=== PATIENT | male | born 1970 | race African-American/Black ===

== ENCOUNTER 2023-04-12 09:07 | Emergency (ER) | payer SELFPAY ==
[2023-04-12 09:15] VITALS: BP 160/90; PULSE 54; RESP 16; TEMP 36.9; O2SAT 98; BMI 19.5
--- NOTE | 2023-04-12 09:31 | US_ITS ---
The [address] [address] Patient Name: PATRICIA CARNEY MRN: [id number] date: 1970 Sex: M Assigned Patient Location: ER Current Patient Location: ER Accession/Order Number: [id number] Exam Date: 04/12/2023 10:00 Report Date: 04/12/2023 11:35 At the request of: JOHN DHILLON Procedure: US right upper quadrant EXAMINATION: US right upper quadrant HISTORY: RUQ pain, vomiting COMPARISON: No relevant comparison available. TECHNIQUE: Transabdominal evaluation of the right upper quadrant. FINDINGS: LIVER: Normal size and echotexture. Color Doppler demonstrates patent hepatic veins. PORTAL VEIN: Duplex Doppler demonstrates normal hepatopetal flow pattern with flow velocity averaging 29 cm/s. GALLBLADDER: Partially filled with sludge; and contains a 5 mm stone. 6 mm stone within the cystic duct. No abnormal wall thickening. Negative sonographic Garza's sign. BILIARY: Abnormally dilated common bile duct, 9 mm. PANCREASE: No visible mass, abnormal atrophy, or duct dilation. KIDNEY: No hydronephrosis. No visible mass or stones. Size: 10.0 x 4.6 x 5.7 cm OTHER: Hyperechoic 1.3 cm area within proximal splenic vein versus portal vein which may represent thrombus. US/US right upper quadrant IMPRESSION: 1. Suspect thrombus within the portal vein/proximal splenic vein. Consider CT abdomen with IV contrast imaged during normal portal venous phase. 2. Abnormally dilated common bile duct with stones seen within the gallbladder and cystic duct. No gallbladder wall thickening, free fluid, or patient described tenderness while imaging directly over the gallbladder. Electronically authenticated by: VLADIMIR ARMENDARIZ Date: 04/12/2023 11:35
--- NOTE | 2023-04-12 09:33 | ED.ABDPAIN1 ---
HPI - Abdominal Pain General Chief Complaint: Abdominal Pain Stated Complaint: ABDOMINAL PAIN, FEVER, NAUSEA Time Seen by Provider: 04/12/23 09:14 Source: patient Mode of arrival: walk-in Limitations: no limitations History of Present Illness HPI narrative: patient presents with RUQ abdominal pain that began about a month ago and has been waxing and waning since. He sometimes has fever or chills. He admits to nausea and vomiting as well. Pain sometimes radiates into the right flank. He believes it is his gallbladder. He has never had kidney stones but told me that his urine is sometimes dark. He saw his PCP and is scheduled to get abdominal x-rays and blood testing on but the pain suddenly increased this morning so he came to the ED for evaluation. Last meal was yesterday. He drank half of a cup of coffee this morning. Related Data Home Medications Medication Instructions Recorded Confirmed atenolol 50 mg tablet 50 mg PO DAILY 04/12/23 04/12/23 ibuprofen 600 mg tablet 600 mg PO Q6H PRN pain 04/12/23 04/12/23 lisinopril 20 mg tablet 20 mg PO DAILY 04/12/23 04/12/23 Allergies Allergy/AdvReac Type Severity Reaction Status Date / Time No Known Drug Allergies Allergy Verified 04/12/23 09:21 [facility] Social History Smoking status: Current every day smoker Exam Narrative Exam Narrative: Nurses notes and vital signs reviewed and patient is not hypoxic. afebrile General: Well-appearing and in no apparent distress. Skin: Warm, dry, no pallor noted. Head: Normocephalic, atraumatic. Eye: Pupils are equal, round and EOMI. No scleral icterus. Ears, Nose, Mouth, and Throat: Oral mucosa is moist Cardiovascular: Regular Rate and Rhythm without murmur, gallop or rub. Respiratory: No accessory muscle use or respiratory distress. Lungs are clear to auscultation, no wheezing, rales or rhonchi Back: No CVA tenderness Musculoskeletal: normal ROM GI: Abdomen is soft, non-distended. Normal bowel sounds. No masses appreciated. RUQ and epigastric tenderness to palpation. No rebound, guarding, or rigidity noted. Neurological: A&O x4. No cranial nerve dysfunction observed. No truncal ataxia. Moves all extremities. Sensation intact. Psychiatric: Cooperative and interactive. Normal mood and affect. Constitutional Vital Signs, click to edit/add: Last Vital Signs Temp 98.4 F 04/12/23 09:15 Pulse 54 L 04/12/23 09:15 Resp 16 04/12/23 09:15 BP 160/90 H 04/12/23 09:15 Pulse Ox 98 04/12/23 09:15 O2 Del Method Room Air 04/12/23 09:15 Course Vital Signs Vital signs: Vital Signs Temperature 98.4 F 04/12/23 09:15 Pulse Rate 54 L 04/12/23 09:15 Respiratory Rate 16 04/12/23 09:15 Blood Pressure 160/90 H 04/12/23 09:15 Pulse Oximetry 98 04/12/23 09:15 Oxygen Delivery Method Room Air 04/12/23 09:15 Temperature 98.4 F 04/12/23 09:15 Pulse Rate 54 L 04/12/23 09:15 Respiratory Rate 16 04/12/23 09:15 Blood Pressure 160/90 H 04/12/23 09:15 Pulse Oximetry 98 04/12/23 09:15 Oxygen Delivery Method Room Air 04/12/23 09:15 MDM - Abdominal Pain MDM Narrative Medical decision making narrative: the patient says that he last ate yesterday. He said he had half a cup of coffee this morning. Blood was drawn and sent for testing. Peripheral IV was established. The patient was ordered to undergo ultrasound of the right upper quadrant. The patient was given IV Toradol and IV Zofran as well as sublingual Levsin for her symptoms. normal CBC including normal white blood cell count. CMP notable for minimal decrease in sodium, normal renal function, elevated AST, ALT and alkaline phosphatase. Patient's total bilirubin is elevated at 7.1. The patient's direct bilirubin is elevated at 6.2. Normal lipase Ultrasound reveals abnormally dilated common bile duct with stones seen within the gallbladder and cystic duct. No gallbladder wall thickening, free fluid or patient described tenderness well imaging directly over the gallbladder. Suspected thrombus within the portal vein and proximal splenic vein was noted. CT scanning -with IV contrast -of the abdomen was recommended and therefore obtained. The patient does not have splenic or portal vein thrombus - he has 2cm pancreatic head mass. Call placed to the general surgeon event operations manager to discuss. Dr Miller and I discussed the case and he said the patient needs ERCP and transfer to another facility. Call placed to GI event operations manager at [facility]. @[phone] the patient notified us that he wanted to leave AMA - he refused to go to [facility]. 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 I discussed the risks of leaving AMA including worsening condition, risk of and he expressed verbal understanding and signed the written AMA form. He promised to go to either [facility] ED or one of the [facility] EDs to have his condition addressed - we do not have ERCP capability so he would not come back to us for that. Patient given a copy of the rad reports for his US and CT and a CD with his images on it. Lab Data Attestation: I reviewed the patient's lab results. Labs: Lab Results 04/12/23 Range/Units 09:27 WBC 6.5 (4.0-11.0) 10^3/uL RBC 3.92 L (4.70-6.10) 10^6/uL Hgb 12.3 L (14.0-18.0) g/dL Hct 36.1 L (42.0-54.0) % MCV 92.1 (80.0-94.0) fL MCH 31.4 (25.9-34.0) pg MCHC 34.1 (29.9-35.2) g/dL RDW 13.7 (11.0-15.0) % Plt Count 300 (150-450) 10^3/uL MPV 10.4 (9.5-13.5) fL Neut % (Auto) 62.4 (43.0-75.0) % Lymph % (Auto) 26.7 (20.5-60.0) % Alfalfa % (Auto) 9.6 (1.7-12.0) % Eos % (Auto) 0.5 L (0.9-7.0) % Baso % (Auto) 0.6 (0.2-2.0) % Neut # (Auto) 4.1 (1.4-6.5) 10^3/uL Lymph # (Auto) 1.7 (1.2-3.8) 10^3/uL Alfalfa # (Auto) 0.6 (0.3-0.8) 10^3/uL Eos # (Auto) 0.0 (0.0-0.7) 10^3/uL Baso # (Auto) 0.0 (0.0-0.1) 10^3/uL Abs Immat Gran (auto) 0.01 (0.00-0.03) 10^3/uL Imm/Tot Granulo (auto) 0.2 (0.0-0.5) % Sodium 133 L (136-145) mmol/L Potassium 3.7 (3.5-5.1) mmol/L Chloride 98 (98-107) mmol/L Carbon Dioxide 27.6 (21.0-32.0) mmol/L Anion Gap 11.1 BUN 17.0 (7.0-18.0) mg/dL Creatinine 1.20 (0.70-1.30) mg/dL Est GFR ( Amer) >60 (>=60) Est GFR (Non-Af Amer) >60 (>=60) BUN/Creatinine Ratio 14.2 Glucose 160 H (74-106) mg/dL Calcium 8.3 L (8.5-10.1) mg/dL Total Bilirubin 7.1 H (0.2-1.0) mg/dL Direct Bilirubin 6.2 H* (0.0-0.2) mg/dL AST 98 H (15-37) U/L ALT 158 H (16-63) U/L Alkaline Phosphatase 482 H (46-116) U/L Total Protein 6.2 L (6.4-8.2) g/dL Albumin 2.7 L (3.4-5.0) g/dL Globulin 3.5 g/dL Albumin/Globulin Ratio 0.8 Lipase 12.0 L (16.0-77.0) U/L Imaging Data US GB: Radiologist's impression: Patient Name: PATRICIA CARNEY MRN: [id number] date: 1970 Sex: M Assigned Patient Location: ER Current Patient Location: ER Accession/Order Number: [id number] Exam Date: 04/12/2023 10:00 Report Date: 04/12/2023 11:35 At the request of: JOHN DHILLON Procedure: US right upper quadrant EXAMINATION: US right upper quadrant HISTORY: RUQ pain, vomiting COMPARISON: No relevant comparison available. TECHNIQUE: Transabdominal evaluation of the right upper quadrant. FINDINGS: LIVER: Normal size and echotexture. Color Doppler demonstrates patent hepatic veins. PORTAL VEIN: Duplex Doppler demonstrates normal hepatopetal flow pattern with flow velocity averaging 29 cm/s. GALLBLADDER: Partially filled with sludge; and contains a 5 mm stone. 6 mm stone within the cystic duct. No abnormal wall thickening. Negative sonographic Garza's sign. BILIARY: Abnormally dilated common bile duct, 9 mm. PANCREASE: No visible mass, abnormal atrophy, or duct dilation. KIDNEY: No hydronephrosis. No visible mass or stones. Size: 10.0 x 4.6 x 5.7 cm OTHER: Hyperechoic 1.3 cm area within proximal splenic vein versus portal vein which may represent thrombus. IMPRESSION: 1. Suspect thrombus within the portal vein/proximal splenic vein. Consider CT abdomen with IV contrast imaged during normal portal venous phase. 2. Abnormally dilated common bile duct with stones seen within the gallbladder and cystic duct. No gallbladder wall thickening, free fluid, or patient described tenderness while imaging directly over the gallbladder. Electronically authenticated by: VLADIMIR ARMENDARIZ Date: 04/12/2023 11:35 CT scan - abdomen: Radiologist's impression: Patient Name: PATRICIA CARNEY MRN: [id number] date: 1970 Sex: M Assigned Patient Location: Current Patient Location: Accession/Order Number: [id number] Exam Date: 04/12/2023 11:58 Report Date: 04/12/2023 12:42 At the request of: JOHN DHILLON Procedure: CT abdomen w con EXAMINATION: CT abdomen w con HISTORY: thrombus portal vein/splenic vein COMPARISON: Ultrasound right upper quadrant 04/12/2023 TECHNIQUE: Axial, Coronal, and Sagittal images were obtained without and/or with IV contrast as indicated by examination type. Dose reduction techniques were achieved by using automated exposure control and/or adjustment of mA and/or kV according to patient size and/or use of iterative reconstruction technique FINDINGS: LUNG BASES: No visible pulmonary or pleural disease. LIVER: No enlargement, atrophy, abnormal density, or significant focal lesion. BILIARY: Well distended gallbladder without wall thickening. Abnormally dilated cystic duct and common bile duct without visible stones (the stones seen on today's ultrasound represent noncalcified stones). PANCREAS: Abnormally dilated pancreatic duct involving the body and tail. 2.0 cm rounded slightly lobular heterogeneous hypoechoic mass within head of pancreas. SPLEEN: No enlargement or focal lesion. ADRENALS: No mass or enlargement. KIDNEYS: No mass, obstruction, or calcification. BOWEL/MESENTERY: Partially distended stomach with circumferential wall thickening up to 12 mm; no appreciable ulceration or mass. Unremarkable visible bowel. AORTA/VASCULAR: No aneurysm or dissection of the aorta. No thrombus within the splenic vein or portal vein. RETROPERITONEUM: No mass or adenopathy. ABDOMINAL WALL: No mass or hernia. BONES: No bony lesion or fracture. OTHER: Negative. IMPRESSION: 1. Within the head of pancreas is a 2 cm mass suspicious for neoplasm obstructing the pancreatic duct and common bile duct. 2. Atypical wall thickening of the stomach; gastritis? 3. No appreciable lymphadenopathy or suspicious liver lesions. 4. No thrombus within the splenic vein or portal vein (ultrasound findings likely represented the mass within the pancreas adjacent the pancreatic duct). Electronically authenticated by: VLADIMIR ARMENDARIZ Date: 04/12/2023 12:42 Discharge Plan Discharge Chief Complaint: Abdominal Pain Clinical Impression: Calculus of common bile duct with obstruction, Mass of head of pancreas Patient Disposition: Left Against Medical Advice Time of Disposition Decision: 12:55 Prescriptions / Home Meds: No Action atenolol 50 mg tablet 50 mg PO DAILY lisinopril 20 mg tablet 20 mg PO DAILY ibuprofen 600 mg tablet 600 mg PO Q6H PRN (Reason: pain) Stand Alone Forms: Portal Instructions Referrals: MARY ARVIZU [Primary Care Provider] - 1 week Discharge Date/Time: 04/12/23 13:53
[2023-04-12] MEDS: ONDANSETRON PF 4 MG/2 ML VIAL IV (09:38)
[2023-04-12] MEDS: KETOROLAC TROMETHAMINE 30 MG/ML VIAL IVP (09:38)
[2023-04-12] MEDS: HYOSCYAMINE SULFATE 0.125 MG TAB.SUBL SL (09:38)
[2023-04-12 09:49] LABS: Basophils Percent Auto 0.6 % (0.2-2.0); Eosinophils Percent Auto 0.5 % (0.9-7.0); Hematocrit 36.1 % (42.0-54.0); Hemoglobin 12.3 g/dL (14.0-18.0); Immature Granulocytes Abs Auto 0.01 10^3/uL (0.00-0.03); Immature Granulocytes Pct Auto 0.2 % (0.0-0.5); Lymphocytes Absolute Auto 1.7 10^3/uL (1.2-3.8); Lymphocytes Percent Auto 26.7 % (20.5-60.0); Mean Corpuscular HGB Conc 34.1 g/dL (29.9-35.2); Mean Corpuscular Hemoglobin 31.4 pg (25.9-34.0); Mean Corpuscular Volume 92.1 fL (80.0-94.0); Mean Platelet Volume 10.4 fL (9.5-13.5); Monocytes Absolute Auto 0.6 10^3/uL (0.3-0.8); Monocytes Percent Auto 9.6 % (1.7-12.0); Neutrophils Absolute Auto 4.1 10^3/uL (1.4-6.5); Neutrophils Percent Auto 62.4 % (43.0-75.0); Platelet Count 300 10^3/uL (150-450); Red Blood Count 3.92 10^6/uL (4.70-6.10); Red Cell Distribution Width 13.7 % (11.0-15.0); White Blood Count 6.5 10^3/uL (4.0-11.0)
[2023-04-12 09:58] LABS: Alanine Aminotransferase 158 U/L (16-63); Albumin Globulin Ratio 0.8; Albumin Level 2.7 g/dL (3.4-5.0); Alkaline Phosphatase 482 U/L (46-116); Anion Gap 11.1; Aspartate Amino Transferase 98 U/L (15-37); BUN Creatinine Ratio 14.2; Bilirubin Total 7.1 mg/dL (0.2-1.0); Calcium 8.3 mg/dL (8.5-10.1); Carbon Dioxide 27.6 mmol/L (21.0-32.0); Chloride 98 mmol/L (98-107); Estimated GFR (African America >60 (>=60); Estimated GFR (Non-African Ame >60 (>=60); Globulin 3.5 g/dL; Glucose 160 mg/dL (74-106); Potassium 3.7 mmol/L (3.5-5.1); Sodium 133 mmol/L (136-145); Total Protein 6.2 g/dL (6.4-8.2)
[2023-04-12 10:43] LABS: Bilirubin Direct 6.2 mg/dL (0.0-0.2)
--- NOTE | 2023-04-12 11:41 | CT_ITS ---
The [address] [address] Patient Name: PATRICIA CARNEY MRN: [id number] date: 1970 Sex: M Assigned Patient Location: ER Current Patient Location: ER Accession/Order Number: [id number] Exam Date: 04/12/2023 11:58 Report Date: 04/12/2023 12:42 At the request of: JOHN DHILLON Procedure: CT abdomen w con EXAMINATION: CT abdomen w con HISTORY: thrombus portal vein/splenic vein COMPARISON: Ultrasound right upper quadrant 04/12/2023 TECHNIQUE: Axial, Coronal, and Sagittal images were obtained without and/or with IV contrast as indicated by examination type. Dose reduction techniques were achieved by using automated exposure control and/or adjustment of mA and/or kV according to patient size and/or use of iterative reconstruction technique FINDINGS: LUNG BASES: No visible pulmonary or pleural disease. LIVER: No enlargement, atrophy, abnormal density, or significant focal lesion. BILIARY: Well distended gallbladder without wall thickening. Abnormally dilated cystic duct and common bile duct without visible stones (the stones seen on today's ultrasound represent noncalcified stones). PANCREAS: Abnormally dilated pancreatic duct involving the body and tail. 2.0 cm rounded slightly lobular heterogeneous hypoechoic mass within head of pancreas. SPLEEN: No enlargement or focal lesion. ADRENALS: No mass or enlargement. KIDNEYS: No mass, obstruction, or calcification. BOWEL/MESENTERY: Partially distended stomach with circumferential wall thickening up to 12 mm; no appreciable ulceration or mass. Unremarkable visible bowel. AORTA/VASCULAR: No aneurysm or dissection of the aorta. No thrombus within the splenic vein or portal vein. RETROPERITONEUM: No mass or adenopathy. ABDOMINAL WALL: No mass or hernia. BONES: No bony lesion or fracture. OTHER: Negative. CT/CT abdomen w con IMPRESSION: 1. Within the head of pancreas is a 2 cm mass suspicious for neoplasm obstructing the pancreatic duct and common bile duct. 2. Atypical wall thickening of the stomach; gastritis? 3. No appreciable lymphadenopathy or suspicious liver lesions. 4. No thrombus within the splenic vein or portal vein (ultrasound findings likely represented the mass within the pancreas adjacent the pancreatic duct). Electronically authenticated by: VLADIMIR ARMENDARIZ Date: 04/12/2023 12:42
--- NOTE | 2023-04-12 13:43 | PC.NURSE ---
Checked on pt at this time -- pt stating he will not stay at the hospital and will be leaving by 2pm. informed dr tipton
--- NOTE | 2023-04-12 13:51 | PC.NURSE ---
In with at this time, AMA paper signed. IV removed. Pt given radiology reads and a disc. Steady gait out door
== END 2023-04-12 13:53 | disposition left against medical advice (07) ==
PROVIDERS: Emergency Provider Emergency Medicine; PCP Family Medicine
DX: K80.50 Calculus of bile duct without cholangitis or cholecystitis without obstruction (principal); K86.9 Disease of pancreas, unspecified; Z79.899 Other long term (current) drug therapy; Z53.29 Procedure and treatment not carried out because of patient's decision for other reasons; F17.210 Nicotine dependence, cigarettes, uncomplicated
CPT/HCPCS: 36415; 74160; 76705; 80053; 82248; 83690; 85025; 96374; 96375; 99285; Q9967